=== PATIENT | male | born 1950 | race Hispanic/Latino ===

== ENCOUNTER → 2019-08-28 | Outpatient (CLI) | payer MEDICARE ==
[~2019-08-28] MED LIST: CITA40TA6 PO; FEXO-59 PO; GLIP10TA9 PO; LATA2.5D2 OP; LEVO5TAB13 PO; LOSA50TA64 PO; METF-446 PO; OMEG1CAP6 PO; RANI150T7 PO; SIMV20TA6 PO; TRAZ-187 PO
== END | disposition home or self-care (01) ==
LOC: RAH 08:27
PROVIDERS: ATTEND Physical Medicine & Rehabilitation
DX: M47.26 Other spondylosis with radiculopathy, lumbar region (principal); M48.061 Spinal stenosis, lumbar region without neurogenic claudication; M43.17 Spondylolisthesis, lumbosacral region; M51.26 Other intervertebral disc displacement, lumbar region
CPT/HCPCS: 72148

== ENCOUNTER 2020-11-04 08:41 | Inpatient (IN) | payer MEDICARE, OTHER ==
[~2020-11-04] VITALS: Ht 180.3 cm; Wt 110.9 kg
[~2020-11-04 08:41] MED LIST changes: +CITA-108 PO; -CITA40TA6 PO; +LATA2.5D14 OP; -LATA2.5D2 OP; +SIMV-43 PO; -SIMV20TA6 PO
[2020-11-04 09:56] LABS: APPEARANCE,URINE Clear (CLEAR); BILIRUBIN,URINE Negative (NEGATIVE); COLOR,URINE Dark Yellow (YELLOW); GLUCOSE, URINE (UA) Negative (NEGATIVE); KETONES,URINE Negative (NEGATIVE); LEUKOCYTE ESTERASE ,URINE Negative (NEGATIVE); NITRATE,URINE Negative (NEGATIVE); OCCULT BLOOD,URINE Negative (NEGATIVE); PH,URINE 5.5 (5.0-8.0); PROTEIN,URINE POS 2+ mg/dL (NEGATIVE)
[2020-11-04] MEDS ORDERED: CEFTRIAXONE 2GM VIAL ONE (10:07)
[2020-11-04] MEDS ORDERED: AZITHROMYCIN 500MG+NS 250ML 250 ML IV ONE (10:07)
[2020-11-04] MEDS ORDERED: 0.9%NACL 100ML 100 ML IV ONE (10:08)
[2020-11-04 10:10] LABS: BACTERIA,URINE Few /HPF (None Seen); RBC,URINE 0-1 /HPF (0-1)
[2020-11-04 10:20] LABS: BASOPHILS % (AUTO) 0.2 % (0.0-5.0); HEMATOCRIT 43.1 % (42-54); LYMPHOCYTES % (AUTO) 8.5 % (21.0-51.0); MEAN CORPUSCULAR HEMOGLOBIN 27.9 pg (27.0-33.0); MEAN CORPUSCULAR HGB CONC 33.6 g/dL (32.0-36.0); MONOCYTES % (AUTO) 6.5 % (3.0-13.0); NEUTROPHILS % (AUTO) 84.1 % (40.0-77.0); PLATELET COUNT (AUTO) 161 K/uL (130-400); RED BLOOD CELL COUNT(AUTO) 5.19 MIL/uL (4.50-6.20); WHITE BLOOD COUNT (AUTO) 11.9 K/uL (4.8-10.8)
[2020-11-04 10:34] LABS: INR 0.99 (0.85-1.15); PROTHROMBIN TIME 10.6 SEC (9.6-11.6)
[2020-11-04 10:35] LABS: PARTIAL THROMBOPLASTIN TIME 26.5 SEC (26.3-35.5)
[2020-11-04 10:40] LABS: ALANINE AMINOTRANSFERASE 57 U/L (12-78); ALBUMIN 3.2 g/dL (3.5-5.0); ASPARTATE AMINOTRANSFERASE 48 U/L (10-37); B-TYPE NATRIURETIC PEPTIDE 23 pg/mL (0-100); BILIRUBIN,TOTAL 0.7 mg/dL (0.2-1.0); CARBON DIOXIDE 22 mmol/L (21-32); CHLORIDE 101 mmol/L (101-111); CREATINE KINASE, TOTAL 51 U/L (21-232); CREATININE 1.1 mg/dL (0.5-1.5); GLOMERULAR FILTR. RATE CALC 70 mL/min (>60); GLUCOSE,RANDOM 142 mg/dL (70-105); MYOGLOBIN 100 ng/mL (10-92); POTASSIUM 4.4 mmol/L (3.5-5.1); SODIUM SERUM 137 mmol/L (136-145); TOTAL PROTEIN, SERUM 6.6 g/dL (6.0-8.3); TROPONIN I < 0.04 ng/mL (0.00-0.06); UREA NITROGEN, BLOOD 22 mg/dL (7-18)
[2020-11-04 11:01] LABS: ABG BASE EXCESS -1.1 mmol/L (-2.0-3.0); ABG HCO3 22.4 mmol/L (21.0-28.0); ABG OXYGEN SATURATION 95.2 % (95.0-99.0); ABG PCO2 34 mmHg (35-48)
[2020-11-04] MEDS ORDERED: ACETAMINOPHEN 325 MG TAB PO PRN ×2 (11:30)
[2020-11-04] MEDS ORDERED: DOXYCYCLINE 100MG+NS 250ML IV SCH (11:30)
[2020-11-04] MEDS ORDERED: CEFTRIAXONE 1G VIAL IVP SCH (11:30)
[2020-11-04] MEDS: ERGOCALCIFEROL (VITAMIN D2) 50,000 UNIT CAPSULE PO SCH (11:30)
[2020-11-04] MEDS ORDERED: DiphenhydrAMINE HCL 50 MG/ML VIAL IV PRN (11:30)
[2020-11-04] MEDS ORDERED: NITROGLYCERIN 0.4 MG SL TAB SL PRN (11:30)
[2020-11-04] MEDS ORDERED: GUAIFENESIN-DM 200/20 MG 10 ML PO PRN (11:30)
[2020-11-04] MEDS ORDERED: MAG/ALUM/SIMETH 30 ML UDCUP PO PRN (11:30)
[2020-11-04] MEDS ORDERED: ONDANSETRON 4MG INJ IV PRN (11:30)
[2020-11-04] MEDS ORDERED: DIPHENHYDRAMINE HCL 25 MG CAPSULE PO PRN (11:30)
[2020-11-04] MEDS ORDERED: LACTULOSE 20 GM/30 ML UDCUP PO PRN (11:30)
[2020-11-04] MEDS: DEXAMETHASONE SOD PHOSPHATE 4 MG/ML 1ML VIAL IVP SCH (11:30)
[2020-11-04] MEDS ORDERED: DEXAMETHASONE SOD PHOSPHATE 4 MG/ML 1ML VIAL ONE (12:59)
[2020-11-04] MEDS ORDERED: ERGOCALCIFEROL (VITAMIN D2) 50,000 UNIT CAPSULE ONE (12:59)
[2020-11-04] MEDS ORDERED: DOXYCYCLINE 100MG+NS 250ML 250 ML IV ONE ×2 (13:00→23:20)
[2020-11-04] MEDS ORDERED: GLUCAGON 1MG KIT 1 MG ML IM PRN (13:15)
[2020-11-04] MEDS ORDERED: DEXTROSE 50%-WATER 50 ML DISP.SYRIN IV PRN (13:15)
[2020-11-04 14:36] LABS: HEMOGLOBIN A1C 6.5 % (4.0-6.0)
[2020-11-04] MEDS: INSULIN HUMULIN R 100 UNIT/ML 3ML SQ SCH ×2 (16:30→21:00)
[2020-11-04] MEDS: FAMOTIDINE 20MG VIAL IV SCH (21:00)
[2020-11-04] MEDS ORDERED: ACETYLCYSTEINE 600 MG CAPSULE PO SCH (21:00)
[2020-11-04] MEDS ORDERED: INSULIN HUMULIN R 100 UNIT/ML 3ML ONE (22:03)
[2020-11-04] MEDS ORDERED: CEFTRIAXONE 1G VIAL ONE (23:21)
[2020-11-04] MEDS ORDERED: FAMOTIDINE 20MG VIAL IV ONE (23:21)
[2020-11-04] MEDS ORDERED: ACETYLCYSTEINE 600 MG CAPSULE ONE (23:40)
[2020-11-05 06:21] LABS: BASOPHILS % (AUTO) 0.2 % (0.0-5.0); LYMPHOCYTES % (AUTO) 16.4 % (21.0-51.0); MEAN CORPUSCULAR HEMOGLOBIN 28.1 pg (27.0-33.0); MEAN CORPUSCULAR HGB CONC 33.6 g/dL (32.0-36.0); MEAN CORPUSCULAR VOLUME 83.5 fL (79-99); MONOCYTES % (AUTO) 9.2 % (3.0-13.0); NEUTROPHILS % (AUTO) 73.5 % (40.0-77.0); PLATELET COUNT (AUTO) 145 K/uL (130-400); RED BLOOD CELL COUNT(AUTO) 4.67 MIL/uL (4.50-6.20); RED CELL DISTRIBUTION WIDTH 12.9 % (11.0-15.5); WHITE BLOOD COUNT (AUTO) 8.9 K/uL (4.8-10.8)
[2020-11-05 06:56] LABS: ALANINE AMINOTRANSFERASE 45 U/L (12-78); ALBUMIN 2.6 g/dL (3.5-5.0); ASPARTATE AMINOTRANSFERASE 38 U/L (10-37); BILIRUBIN,TOTAL 0.4 mg/dL (0.2-1.0); CARBON DIOXIDE 24 mmol/L (21-32); CHLORIDE 105 mmol/L (101-111); CREATININE 0.9 mg/dL (0.5-1.5); GLOMERULAR FILTR. RATE CALC 88 mL/min (>60); GLUCOSE,RANDOM 159 mg/dL (70-105); LACTATE DEHYDROGENASE 390 U/L (81-234); POTASSIUM 4.2 mmol/L (3.5-5.1); SODIUM SERUM 139 mmol/L (136-145); TOTAL PROTEIN, SERUM 6.4 g/dL (6.0-8.3); UREA NITROGEN, BLOOD 21 mg/dL (7-18)
[2020-11-05] MEDS: INSULIN HUMULIN R 100 UNIT/ML 3ML SQ SCH ×4 (07:30→21:00)
[2020-11-05] MEDS ORDERED: ASCORBIC ACID 500 MG TAB ONE (08:14)
[2020-11-05] MEDS ORDERED: ZINC SULFATE 220 CAPSULE ONE (08:14)
[2020-11-05] MEDS ORDERED: ENOXAPARIN SODIUM 40 MG/0.4 ML SYRINGE SQ ONE (08:15)
[2020-11-05] MEDS ORDERED: FAMOTIDINE 20MG VIAL IV ONE ×2 (08:15→21:50)
[2020-11-05] MEDS ORDERED: PHARMACY COMMUNICATION MISC SCH (08:45)
[2020-11-05] MEDS: FAMOTIDINE 20MG VIAL IV SCH ×2 (09:00→21:00)
[2020-11-05] MEDS: ASCORBIC ACID 500 MG TAB PO SCH (09:00)
[2020-11-05] MEDS: ZINC SULFATE 220 CAPSULE PO SCH (09:00)
[2020-11-05] MEDS ORDERED: COMPOUND IV REFRIGERATED 1 EACH IVSOLN MISC PRN (09:00)
[2020-11-05] MEDS ORDERED: ENOXAPARIN SODIUM 40 MG/0.4 ML SYRINGE SQ SCH (09:00)
[2020-11-05] MEDS ORDERED: REMDESIVIR (EUA) 520 200 MG in 0.9% NACL 250ML 250 ML IV SCH (09:00)
[2020-11-05] MEDS: ERGOCALCIFEROL (VITAMIN D2) 50,000 UNIT CAPSULE PO SCH (11:30)
[2020-11-05] MEDS: DEXAMETHASONE SOD PHOSPHATE 4 MG/ML 1ML VIAL IVP SCH (11:30)
[2020-11-05] MEDS ORDERED: CEFTRIAXONE 1G VIAL ONE (11:52)
[2020-11-05] MEDS ORDERED: DEXAMETHASONE SOD PHOSPHATE 10MG/ML 1ML VIAL ONE (11:52)
[2020-11-05] MEDS ORDERED: DOXYCYCLINE 100MG+NS 250ML 250 ML IV ONE (11:52)
[2020-11-05] MEDS ORDERED: ERGOCALCIFEROL (VITAMIN D2) 50,000 UNIT CAPSULE ONE (11:52)
[2020-11-05] MEDS ORDERED: INSULIN HUMULIN R 100 UNIT/ML 3ML ONE ×2 (17:07→21:51)
[2020-11-05] MEDS ORDERED: ACETYLCYSTEINE 600 MG CAPSULE ONE (21:50)
[2020-11-06] MEDS ORDERED: DOXYCYCLINE 100MG+NS 250ML 250 ML IV ONE (01:12)
[2020-11-06 04:27] LABS: BASOPHILS % (AUTO) 0.2 % (0.0-5.0); EOSINOPHILS % (AUTO) 0.1 % (0.0-8.0); HEMATOCRIT 40.6 % (42-54); MEAN CORPUSCULAR HEMOGLOBIN 27.8 pg (27.0-33.0); MEAN CORPUSCULAR HGB CONC 33.5 g/dL (32.0-36.0); MONOCYTES % (AUTO) 8.6 % (3.0-13.0); NEUTROPHILS % (AUTO) 69.4 % (40.0-77.0); PLATELET COUNT (AUTO) 173 K/uL (130-400); RED BLOOD CELL COUNT(AUTO) 4.89 MIL/uL (4.50-6.20); RED CELL DISTRIBUTION WIDTH 12.6 % (11.0-15.5); WHITE BLOOD COUNT (AUTO) 8.2 K/uL (4.8-10.8)
[2020-11-06 04:54] LABS: ALBUMIN 2.5 g/dL (3.5-5.0); BILIRUBIN,TOTAL 0.5 mg/dL (0.2-1.0); CREATININE 0.9 mg/dL (0.5-1.5); POTASSIUM 4.3 mmol/L (3.5-5.1); TOTAL PROTEIN, SERUM 6.4 g/dL (6.0-8.3)
[2020-11-06] MEDS: PHARMACY COMMUNICATION MISC SCH (06:00)
[2020-11-06] MEDS: INSULIN HUMULIN R 100 UNIT/ML 3ML SQ SCH ×4 (07:30→21:11)
[2020-11-06] MEDS ORDERED: ASCORBIC ACID 500 MG TAB ONE (07:58)
[2020-11-06] MEDS ORDERED: ENOXAPARIN SODIUM 40 MG/0.4 ML SYRINGE SQ ONE (07:58)
[2020-11-06] MEDS ORDERED: ZINC SULFATE 220 CAPSULE ONE (07:58)
[2020-11-06] MEDS ORDERED: FAMOTIDINE 20MG VIAL IV ONE (07:59)
[2020-11-06] MEDS: ZINC SULFATE 220 CAPSULE PO SCH (09:00)
[2020-11-06] MEDS: FAMOTIDINE 20MG VIAL IV SCH (09:00)
[2020-11-06] MEDS: ASCORBIC ACID 500 MG TAB PO SCH (09:00)
[2020-11-06] MEDS ORDERED: ERGOCALCIFEROL (VITAMIN D2) 50,000 UNIT CAPSULE ONE (10:42)
[2020-11-06] MEDS ORDERED: DEXAMETHASONE SOD PHOSPHATE 10MG/ML 1ML VIAL ONE (10:42)
[2020-11-06] MEDS: DEXAMETHASONE SOD PHOSPHATE 4 MG/ML 1ML VIAL IVP SCH (11:30)
[2020-11-06] MEDS: ERGOCALCIFEROL (VITAMIN D2) 50,000 UNIT CAPSULE PO SCH (11:30)
[2020-11-06] MEDS: MEROPENEM 1 GM VIAL IVP SCH ×2 (14:15→23:05)
[2020-11-06] MEDS ORDERED: 0.9%NACL 100ML 100 ML IV ONE (14:36)
[2020-11-06] MEDS ORDERED: MEROPENEM 1 GM VIAL ONE (14:36)
[2020-11-06] MEDS: REMDESIVIR (EUA) 520 100 MG in 0.9% NACL 250ML 250 ML IV SCH (15:00)
[2020-11-06 17:02] VITALS: BP 157/84
[2020-11-06] MEDS ORDERED: OMEG-148 PO (18:02)
[2020-11-06] MEDS ORDERED: LOSA100T58 PO (18:02)
[2020-11-06] MEDS ORDERED: MELA1TAB28 PO (18:02)
[2020-11-06] MEDS ORDERED: PANT40TA54 PO (18:02)
[2020-11-06] MEDS ORDERED: LATA2.5D14 OP (18:02)
[2020-11-06] MEDS ORDERED: GABA600T10 PO (18:02)
[2020-11-06] MEDS ORDERED: FLUT16H NASAL (18:02)
[2020-11-06] MEDS ORDERED: METF-446 PO (18:02)
[2020-11-06 19:00] VITALS: BP 147/81
[2020-11-06] MEDS: ENOXAPARIN SODIUM 60 MG/0.6 ML SQ SCH (20:56)
[2020-11-06 23:00] VITALS: BP 129/70
[2020-11-07 03:00] VITALS: BP 145/86
[2020-11-07 05:55] LABS: BASOPHILS % (AUTO) 0.3 % (0.0-5.0); EOSINOPHILS % (AUTO) 0.4 % (0.0-8.0); LYMPHOCYTES % (AUTO) 21.6 % (21.0-51.0); MEAN CORPUSCULAR HEMOGLOBIN 28.2 pg (27.0-33.0); MEAN CORPUSCULAR HGB CONC 33.8 g/dL (32.0-36.0); MEAN CORPUSCULAR VOLUME 83.3 fL (79-99); MONOCYTES % (AUTO) 8.3 % (3.0-13.0); NEUTROPHILS % (AUTO) 68.4 % (40.0-77.0); PLATELET COUNT (AUTO) 210 K/uL (130-400); RED BLOOD CELL COUNT(AUTO) 5.04 MIL/uL (4.50-6.20); RED CELL DISTRIBUTION WIDTH 12.6 % (11.0-15.5); WHITE BLOOD COUNT (AUTO) 7.7 K/uL (4.8-10.8)
[2020-11-07] MEDS: PHARMACY COMMUNICATION MISC SCH (06:00)
[2020-11-07 06:20] LABS: ALBUMIN 2.5 g/dL (3.5-5.0); BILIRUBIN,TOTAL 0.8 mg/dL (0.2-1.0); CRP QUANTITATIVE 46.7 mg/L (0.00-9.0); POTASSIUM 4.4 mmol/L (3.5-5.1); TOTAL PROTEIN, SERUM 6.5 g/dL (6.0-8.3)
[2020-11-07] MEDS: MEROPENEM 1 GM VIAL IVP SCH ×2 (06:52→14:14)
[2020-11-07 08:00] VITALS: BP 130/87
[2020-11-07] MEDS: ENOXAPARIN SODIUM 60 MG/0.6 ML SQ SCH ×2 (08:21→21:14)
[2020-11-07] MEDS: ASCORBIC ACID 500 MG TAB PO SCH (08:21)
[2020-11-07] MEDS: PANTOPRAZOLE 40 MG TAB DR PO SCH (08:22)
[2020-11-07] MEDS: ZINC SULFATE 220 CAPSULE PO SCH (08:22)
[2020-11-07 12:00] VITALS: BP 142/80
[2020-11-07] MEDS ORDERED: PHARMACY COMMUNICATION MISC SCH (12:15)
[2020-11-07] MEDS: DEXAMETHASONE SOD PHOSPHATE 4 MG/ML 1ML VIAL IVP SCH (12:15)
[2020-11-07] MEDS: ERGOCALCIFEROL (VITAMIN D2) 50,000 UNIT CAPSULE PO SCH (12:15)
[2020-11-07] MEDS: FLUTICASONE PROPIONATE 50MCG/SPRAY 16 GM BOTTLE EN SCH (12:16)
[2020-11-07] MEDS ORDERED: COMPOUND PO MISCELLANEOUS 1 EACH MISC MISC PRN (12:30)
[2020-11-07] MEDS: MAG/AL/SIMETH 30 ML+LIDO2% VISC+DIPHEN 75MG 30ML PO SCH ×6 (13:01→16:54)
[2020-11-07] MEDS: FISH OIL 1000 MG/CAP PO SCH ×2 (14:14→21:13)
[2020-11-07] MEDS: GABAPENTIN 300 MG CAPSULE PO SCH ×2 (14:14→21:13)
[2020-11-07] MEDS: CLOTRIMAZOLE 10 MG TROCHE MM SCH ×2 (14:14→16:53)
[2020-11-07] MEDS: REMDESIVIR (EUA) 520 100 MG in 0.9% NACL 250ML 250 ML IV SCH (15:01)
[2020-11-07 16:00] VITALS: BP 143/59
[2020-11-07] MEDS: INSULIN HUMULIN R 100 UNIT/ML 3ML SQ SCH ×2 (16:59→21:16)
[2020-11-07 19:00] VITALS: BP 134/65
[2020-11-07] MEDS: **HM** MELATONIN 3MG PO SCH (21:00)
[2020-11-07] MEDS ORDERED: 0.9% NACL 250ML 250 ML IV ONE (21:03)
[2020-11-07] MEDS: LATANOPROST 2.5 ML DROPS OP SCH (21:20)
[2020-11-07 23:00] VITALS: BP 130/67
[2020-11-08] MEDS: MEROPENEM 1 GM VIAL IVP SCH ×4 (01:02→22:43)
[2020-11-08] MEDS: MAG/AL/SIMETH 30 ML+LIDO2% VISC+DIPHEN 75MG 30ML PO SCH ×12 (01:03→17:53)
[2020-11-08] MEDS: CLOTRIMAZOLE 10 MG TROCHE MM SCH ×4 (01:14→22:43)
[2020-11-08 03:00] VITALS: BP 154/74
[2020-11-08] MEDS: INSULIN HUMULIN R 100 UNIT/ML 3ML SQ SCH ×4 (05:48→21:34)
[2020-11-08 05:58] LABS: BASOPHILS % (AUTO) 0.2 % (0.0-5.0); EOSINOPHILS % (AUTO) 0.8 % (0.0-8.0); HEMATOCRIT 38.7 % (42-54); LYMPHOCYTES % (AUTO) 23.6 % (21.0-51.0); MEAN CORPUSCULAR HGB CONC 33.9 g/dL (32.0-36.0); MEAN CORPUSCULAR VOLUME 82.7 fL (79-99); MONOCYTES % (AUTO) 10.6 % (3.0-13.0); NEUTROPHILS % (AUTO) 63.4 % (40.0-77.0); PLATELET COUNT (AUTO) 182 K/uL (130-400); RED BLOOD CELL COUNT(AUTO) 4.68 MIL/uL (4.50-6.20); RED CELL DISTRIBUTION WIDTH 12.4 % (11.0-15.5); WHITE BLOOD COUNT (AUTO) 4.8 K/uL (4.8-10.8)
[2020-11-08] MEDS: PHARMACY COMMUNICATION MISC SCH (06:00)
[2020-11-08 06:35] LABS: ALANINE AMINOTRANSFERASE 37 U/L (12-78); ALBUMIN 2.4 g/dL (3.5-5.0); ASPARTATE AMINOTRANSFERASE 28 U/L (10-37); BILIRUBIN,TOTAL 0.8 mg/dL (0.2-1.0); CARBON DIOXIDE 28 mmol/L (21-32); CHLORIDE 102 mmol/L (101-111); CREATININE 0.9 mg/dL (0.5-1.5); GLOMERULAR FILTR. RATE CALC 88 mL/min (>60); GLUCOSE,RANDOM 136 mg/dL (70-105); POTASSIUM 4.4 mmol/L (3.5-5.1); SODIUM SERUM 139 mmol/L (136-145); TOTAL PROTEIN, SERUM 6.3 g/dL (6.0-8.3); UREA NITROGEN, BLOOD 19 mg/dL (7-18)
[2020-11-08 07:00] VITALS: BP 143/73
[2020-11-08] MEDS: GABAPENTIN 300 MG CAPSULE PO SCH ×3 (10:30→21:32)
[2020-11-08] MEDS: FISH OIL 1000 MG/CAP PO SCH ×3 (10:31→21:31)
[2020-11-08] MEDS: FLUTICASONE PROPIONATE 50MCG/SPRAY 16 GM BOTTLE EN SCH (10:31)
[2020-11-08] MEDS: ENOXAPARIN SODIUM 60 MG/0.6 ML SQ SCH ×2 (10:31→21:33)
[2020-11-08] MEDS: ZINC SULFATE 220 CAPSULE PO SCH (10:31)
[2020-11-08] MEDS: ASCORBIC ACID 500 MG TAB PO SCH (10:31)
[2020-11-08] MEDS: LOSARTAN 100 MG TABLET PO SCH (10:31)
[2020-11-08] MEDS: PANTOPRAZOLE 40 MG TAB DR PO SCH (10:31)
[2020-11-08 11:00] VITALS: BP 128/85
[2020-11-08] MEDS: ERGOCALCIFEROL (VITAMIN D2) 50,000 UNIT CAPSULE PO SCH (11:20)
[2020-11-08] MEDS: DEXAMETHASONE SOD PHOSPHATE 4 MG/ML 1ML VIAL IVP SCH (11:29)
[2020-11-08] MEDS ORDERED: PHARMACY COMMUNICATION MISC SCH (11:45)
[2020-11-08] MEDS: REMDESIVIR (EUA) 520 100 MG in 0.9% NACL 250ML 250 ML IV SCH (14:48)
[2020-11-08 16:00] VITALS: BP 137/86
[2020-11-08 19:27] VITALS: BP 140/70
[2020-11-08] MEDS: **HM** MELATONIN 3MG PO SCH (21:00)
[2020-11-08] MEDS: LATANOPROST 2.5 ML DROPS OP SCH (21:34)
[2020-11-08 23:18] VITALS: BP 151/82
[2020-11-09] MEDS: MAG/AL/SIMETH 30 ML+LIDO2% VISC+DIPHEN 75MG 30ML PO SCH ×12 (01:02→17:27)
[2020-11-09 04:06] VITALS: BP 145/69
[2020-11-09] MEDS: PHARMACY COMMUNICATION MISC SCH (06:00)
[2020-11-09] MEDS: MEROPENEM 1 GM VIAL IVP SCH ×3 (06:12→22:20)
[2020-11-09] MEDS: CLOTRIMAZOLE 10 MG TROCHE MM SCH ×4 (06:12→22:30)
[2020-11-09 06:20] LABS: BASOPHILS % (AUTO) 0.1 % (0.0-5.0); EOSINOPHILS % (AUTO) 0.9 % (0.0-8.0); LYMPHOCYTES % (AUTO) 22.6 % (21.0-51.0); MEAN CORPUSCULAR HGB CONC 33.9 g/dL (32.0-36.0); MEAN CORPUSCULAR VOLUME 82.5 fL (79-99); MONOCYTES % (AUTO) 9.6 % (3.0-13.0); NEUTROPHILS % (AUTO) 65.3 % (40.0-77.0); PLATELET COUNT (AUTO) 233 K/uL (130-400); RED BLOOD CELL COUNT(AUTO) 4.97 MIL/uL (4.50-6.20); RED CELL DISTRIBUTION WIDTH 12.5 % (11.0-15.5); WHITE BLOOD COUNT (AUTO) 6.8 K/uL (4.8-10.8)
[2020-11-09] MEDS: INSULIN HUMULIN R 100 UNIT/ML 3ML SQ SCH ×4 (06:34→20:34)
[2020-11-09 06:39] LABS: ALBUMIN 2.3 g/dL (3.5-5.0); BILIRUBIN,TOTAL 0.7 mg/dL (0.2-1.0); CREATININE 0.9 mg/dL (0.5-1.5); POTASSIUM 4.5 mmol/L (3.5-5.1); TOTAL PROTEIN, SERUM 6.3 g/dL (6.0-8.3)
[2020-11-09 08:30] VITALS: BP 131/83
[2020-11-09] MEDS: FISH OIL 1000 MG/CAP PO SCH ×3 (09:07→20:26)
[2020-11-09] MEDS: GABAPENTIN 300 MG CAPSULE PO SCH ×3 (09:08→20:27)
[2020-11-09] MEDS: ASCORBIC ACID 500 MG TAB PO SCH (09:08)
[2020-11-09] MEDS: LOSARTAN 100 MG TABLET PO SCH (09:08)
[2020-11-09] MEDS: ENOXAPARIN SODIUM 60 MG/0.6 ML SQ SCH ×2 (09:08→22:21)
[2020-11-09] MEDS: PANTOPRAZOLE 40 MG TAB DR PO SCH (09:08)
[2020-11-09] MEDS: ZINC SULFATE 220 CAPSULE PO SCH (09:08)
[2020-11-09] MEDS: FLUTICASONE PROPIONATE 50MCG/SPRAY 16 GM BOTTLE EN SCH (09:17)
[2020-11-09] MEDS: ERGOCALCIFEROL (VITAMIN D2) 50,000 UNIT CAPSULE PO SCH (11:30)
[2020-11-09] MEDS: DEXAMETHASONE SOD PHOSPHATE 4 MG/ML 1ML VIAL IVP SCH (12:14)
[2020-11-09 12:54] VITALS: BP 112/56
[2020-11-09] MEDS ORDERED: 0.9%NACL 50ML 50 ML IV ONE (15:06)
[2020-11-09] MEDS: REMDESIVIR (EUA) 520 100 MG in 0.9% NACL 250ML 250 ML IV SCH (15:07)
[2020-11-09 16:30] VITALS: BP 140/77
[2020-11-09 20:13] VITALS: BP 129/67
[2020-11-09] MEDS: LATANOPROST 2.5 ML DROPS OP SCH (20:26)
[2020-11-09] MEDS: **HM** MELATONIN 3MG PO SCH (20:26)
[2020-11-10 00:12] VITALS: BP 112/76
[2020-11-10] MEDS: MAG/AL/SIMETH 30 ML+LIDO2% VISC+DIPHEN 75MG 30ML PO SCH ×12 (00:30→18:30)
[2020-11-10 04:00] VITALS: BP 126/67
[2020-11-10] MEDS: CLOTRIMAZOLE 10 MG TROCHE MM SCH ×4 (04:47→22:01)
[2020-11-10 05:10] LABS: BASOPHILS % (AUTO) 0.3 % (0.0-5.0); EOSINOPHILS % (AUTO) 0.5 % (0.0-8.0); HEMATOCRIT 41.3 % (42-54); LYMPHOCYTES % (AUTO) 24.8 % (21.0-51.0); MEAN CORPUSCULAR HEMOGLOBIN 28.1 pg (27.0-33.0); MEAN CORPUSCULAR HGB CONC 33.9 g/dL (32.0-36.0); MEAN CORPUSCULAR VOLUME 82.9 fL (79-99); MONOCYTES % (AUTO) 8.3 % (3.0-13.0); NEUTROPHILS % (AUTO) 64.6 % (40.0-77.0); PLATELET COUNT (AUTO) 247 K/uL (130-400); RED BLOOD CELL COUNT(AUTO) 4.98 MIL/uL (4.50-6.20); RED CELL DISTRIBUTION WIDTH 12.5 % (11.0-15.5); WHITE BLOOD COUNT (AUTO) 7.6 K/uL (4.8-10.8)
[2020-11-10 05:45] LABS: ALBUMIN 2.3 g/dL (3.5-5.0); BILIRUBIN,TOTAL 0.5 mg/dL (0.2-1.0); POTASSIUM 4.9 mmol/L (3.5-5.1); TOTAL PROTEIN, SERUM 6.1 g/dL (6.0-8.3)
[2020-11-10] MEDS: MEROPENEM 1 GM VIAL IVP SCH ×3 (06:25→21:45)
[2020-11-10] MEDS: INSULIN HUMULIN R 100 UNIT/ML 3ML SQ SCH ×4 (07:30→21:48)
[2020-11-10] MEDS: GABAPENTIN 300 MG CAPSULE PO SCH ×3 (09:10→21:43)
[2020-11-10] MEDS: ZINC SULFATE 220 CAPSULE PO SCH (09:10)
[2020-11-10] MEDS: ASCORBIC ACID 500 MG TAB PO SCH (09:10)
[2020-11-10] MEDS: FISH OIL 1000 MG/CAP PO SCH ×3 (09:11→21:43)
[2020-11-10] MEDS: PANTOPRAZOLE 40 MG TAB DR PO SCH (09:11)
[2020-11-10] MEDS: LOSARTAN 100 MG TABLET PO SCH (09:11)
[2020-11-10] MEDS: ENOXAPARIN SODIUM 60 MG/0.6 ML SQ SCH ×2 (09:14→21:45)
[2020-11-10 09:19] VITALS: BP 99/36
[2020-11-10] MEDS: FLUTICASONE PROPIONATE 50MCG/SPRAY 16 GM BOTTLE EN SCH (09:32)
[2020-11-10] MEDS: PHARMACY COMMUNICATION MISC SCH (12:30)
[2020-11-10] MEDS: ERGOCALCIFEROL (VITAMIN D2) 50,000 UNIT CAPSULE PO SCH (12:44)
[2020-11-10] MEDS: DEXAMETHASONE SOD PHOSPHATE 4 MG/ML 1ML VIAL IVP SCH (12:44)
[2020-11-10 12:45] VITALS: BP 149/101
[2020-11-10 16:33] VITALS: BP 99/57
[2020-11-10 20:34] VITALS: BP 99/57
[2020-11-10] MEDS: **HM** MELATONIN 3MG PO SCH (22:15)
[2020-11-10] MEDS: LATANOPROST 2.5 ML DROPS OP SCH (22:16)
[2020-11-11] VITALS: BP 111/59
[2020-11-11] MEDS: MAG/AL/SIMETH 30 ML+LIDO2% VISC+DIPHEN 75MG 30ML PO SCH ×15 (00:30→23:40)
[2020-11-11 04:00] VITALS: BP 120/52
[2020-11-11] MEDS: INSULIN HUMULIN R 100 UNIT/ML 3ML SQ SCH ×4 (06:03→20:35)
[2020-11-11] MEDS: MEROPENEM 1 GM VIAL IVP SCH ×3 (06:09→20:38)
[2020-11-11] MEDS: CLOTRIMAZOLE 10 MG TROCHE MM SCH ×4 (06:09→20:38)
[2020-11-11 08:00] VITALS: BP 118/60
[2020-11-11] MEDS: ENOXAPARIN SODIUM 60 MG/0.6 ML SQ SCH ×2 (09:38→20:37)
[2020-11-11] MEDS: FISH OIL 1000 MG/CAP PO SCH ×3 (09:38→20:38)
[2020-11-11] MEDS: ZINC SULFATE 220 CAPSULE PO SCH (09:38)
[2020-11-11] MEDS: ASCORBIC ACID 500 MG TAB PO SCH (09:39)
[2020-11-11] MEDS: LOSARTAN 100 MG TABLET PO SCH (09:39)
[2020-11-11] MEDS: GABAPENTIN 300 MG CAPSULE PO SCH ×3 (09:39→20:38)
[2020-11-11] MEDS: PANTOPRAZOLE 40 MG TAB DR PO SCH (09:39)
[2020-11-11] MEDS: FLUTICASONE PROPIONATE 50MCG/SPRAY 16 GM BOTTLE EN SCH (09:50)
[2020-11-11 12:06] VITALS: BP 110/47
[2020-11-11] MEDS: DEXAMETHASONE SOD PHOSPHATE 4 MG/ML 1ML VIAL IVP SCH (12:12)
[2020-11-11] MEDS: ERGOCALCIFEROL (VITAMIN D2) 50,000 UNIT CAPSULE PO SCH (12:13)
[2020-11-11 16:00] VITALS: BP 101/64
[2020-11-11 19:34] VITALS: BP 100/73
[2020-11-11] MEDS: LATANOPROST 2.5 ML DROPS OP SCH (20:43)
[2020-11-11] MEDS: **HM** MELATONIN 3MG PO SCH (20:43)
[2020-11-12 00:10] VITALS: BP 111/56
[2020-11-12 03:46] VITALS: BP 118/60
[2020-11-12 04:05] LABS: ABG BASE EXCESS 2.6 mmol/L (-2.0-3.0); ABG HCO3 26.6 mmol/L (21.0-28.0); ABG PCO2 39 mmHg (35-48)
[2020-11-12] MEDS: CLOTRIMAZOLE 10 MG TROCHE MM SCH ×4 (05:01→20:49)
[2020-11-12] MEDS: MAG/AL/SIMETH 30 ML+LIDO2% VISC+DIPHEN 75MG 30ML PO SCH ×12 (05:02→20:56)
[2020-11-12] MEDS: MEROPENEM 1 GM VIAL IVP SCH ×3 (05:03→20:48)
[2020-11-12 05:26] LABS: HEMATOCRIT 44.2 % (42-54); MEAN CORPUSCULAR HEMOGLOBIN 28.1 pg (27.0-33.0); MEAN CORPUSCULAR HGB CONC 33.5 g/dL (32.0-36.0); MEAN CORPUSCULAR VOLUME 83.9 fL (79-99); RED BLOOD CELL COUNT(AUTO) 5.27 MIL/uL (4.50-6.20); RED CELL DISTRIBUTION WIDTH 12.7 % (11.0-15.5)
[2020-11-12 05:52] LABS: ALANINE AMINOTRANSFERASE 36 U/L (12-78); ALBUMIN 2.5 g/dL (3.5-5.0); ASPARTATE AMINOTRANSFERASE 19 U/L (10-37); BILIRUBIN,TOTAL 0.8 mg/dL (0.2-1.0); CARBON DIOXIDE 31 mmol/L (21-32); CHLORIDE 98 mmol/L (101-111); CREATININE 1.1 mg/dL (0.5-1.5); GLOMERULAR FILTR. RATE CALC 70 mL/min (>60); GLUCOSE,RANDOM 122 mg/dL (70-105); POTASSIUM 4.6 mmol/L (3.5-5.1); SODIUM SERUM 136 mmol/L (136-145); TOTAL PROTEIN, SERUM 6.4 g/dL (6.0-8.3); UREA NITROGEN, BLOOD 28 mg/dL (7-18)
[2020-11-12] MEDS: INSULIN HUMULIN R 100 UNIT/ML 3ML SQ SCH ×4 (06:27→20:53)
[2020-11-12 08:49] VITALS: BP 110/59
[2020-11-12] MEDS: FLUTICASONE PROPIONATE 50MCG/SPRAY 16 GM BOTTLE EN SCH (09:00)
[2020-11-12] MEDS: ZINC SULFATE 220 CAPSULE PO SCH (09:43)
[2020-11-12] MEDS: ASCORBIC ACID 500 MG TAB PO SCH (09:43)
[2020-11-12] MEDS: PANTOPRAZOLE 40 MG TAB DR PO SCH (09:43)
[2020-11-12] MEDS: FISH OIL 1000 MG/CAP PO SCH ×3 (09:43→20:49)
[2020-11-12] MEDS: LOSARTAN 100 MG TABLET PO SCH (09:43)
[2020-11-12] MEDS: GABAPENTIN 300 MG CAPSULE PO SCH ×3 (09:43→20:49)
[2020-11-12] MEDS: ENOXAPARIN SODIUM 60 MG/0.6 ML SQ SCH ×2 (09:44→20:51)
[2020-11-12] MEDS: ERGOCALCIFEROL (VITAMIN D2) 50,000 UNIT CAPSULE PO SCH (11:54)
[2020-11-12] MEDS: DEXAMETHASONE SOD PHOSPHATE 4 MG/ML 1ML VIAL IVP SCH (11:54)
[2020-11-12 16:00] VITALS: BP 99/68
[2020-11-12 19:30] VITALS: BP 112/49
[2020-11-12] MEDS: LATANOPROST 2.5 ML DROPS OP SCH (20:53)
[2020-11-12] MEDS: **HM** MELATONIN 3MG PO SCH (20:55)
[2020-11-13 00:50] VITALS: BP 107/64
[2020-11-13 03:39] VITALS: BP 112/67
[2020-11-13] MEDS: MEROPENEM 1 GM VIAL IVP SCH ×2 (06:11→13:35)
[2020-11-13] MEDS: CLOTRIMAZOLE 10 MG TROCHE MM SCH ×2 (06:11→10:19)
[2020-11-13] MEDS: MAG/AL/SIMETH 30 ML+LIDO2% VISC+DIPHEN 75MG 30ML PO SCH ×6 (06:12→13:49)
[2020-11-13] MEDS: INSULIN HUMULIN R 100 UNIT/ML 3ML SQ SCH ×2 (06:27→13:48)
[2020-11-13 07:40] VITALS: BP 110/67
[2020-11-13] MEDS ORDERED: DEXA6TAB PO (08:39)
[2020-11-13] MEDS ORDERED: APIX2.5T PO (08:39)
[2020-11-13] MEDS ORDERED: ASCO500T20 PO (08:39)
[2020-11-13] MEDS ORDERED: ZINC220C6 PO (08:39)
[2020-11-13] MEDS: ZINC SULFATE 220 CAPSULE PO SCH (10:18)
[2020-11-13] MEDS: PANTOPRAZOLE 40 MG TAB DR PO SCH (10:18)
[2020-11-13] MEDS: GABAPENTIN 300 MG CAPSULE PO SCH ×2 (10:18→13:36)
[2020-11-13] MEDS: LOSARTAN 100 MG TABLET PO SCH (10:19)
[2020-11-13] MEDS: ASCORBIC ACID 500 MG TAB PO SCH (10:19)
[2020-11-13] MEDS: FISH OIL 1000 MG/CAP PO SCH ×2 (10:19→13:35)
[2020-11-13] MEDS: DEXAMETHASONE SOD PHOSPHATE 4 MG/ML 1ML VIAL IVP SCH (10:19)
[2020-11-13] MEDS: ENOXAPARIN SODIUM 60 MG/0.6 ML SQ SCH (10:20)
[2020-11-13] MEDS: FLUTICASONE PROPIONATE 50MCG/SPRAY 16 GM BOTTLE EN SCH (10:47)
[2020-11-13 11:32] VITALS: BP 125/76
[2020-11-13 16:00] VITALS: BP 108/61
== END 2020-11-13 17:30 | disposition home or self-care (01) | DRG 177 ==
LOC: EDH 08:41 → EDHIP 11:21 → 2AH 11-06 16:08
PROVIDERS: ADMIT Family Medicine; ATTEND Family Medicine
PROC: 5A0935A Assistance with Respiratory Ventilation, Less than 24 Consecutive Hours, High Flow/Velocity Cannula (ICD-10-PCS; 2019-11-13)
PROC: 5A0955A Assistance with Respiratory Ventilation, Greater than 96 Consecutive Hours, High Flow/Velocity Cannula (ICD-10-PCS; 2020-11-04)
PROC: XW033E5 Introduction of Remdesivir Anti-infective into Peripheral Vein, Percutaneous Approach, New Technology Group 5 (ICD-10-PCS; 2020-11-06)
PROC: XW13325 Transfusion of Convalescent Plasma (Nonautologous) into Peripheral Vein, Percutaneous Approach, New Technology Group 5 (ICD-10-PCS; principal; 2020-11-07)
PROC: 5A0935A Assistance with Respiratory Ventilation, Less than 24 Consecutive Hours, High Flow/Velocity Cannula (ICD-10-PCS; 2020-11-10)
PROC: 5A0935A Assistance with Respiratory Ventilation, Less than 24 Consecutive Hours, High Flow/Velocity Cannula (ICD-10-PCS; 2020-11-11)
PROC: 5A09357 Assistance with Respiratory Ventilation, Less than 24 Consecutive Hours, Continuous Positive Airway Pressure (ICD-10-PCS; 2020-11-12)
PROC: 5A0935A Assistance with Respiratory Ventilation, Less than 24 Consecutive Hours, High Flow/Velocity Cannula (ICD-10-PCS; 2020-11-12)
DX: U07.1 COVID-19 (principal); J12.89 Other viral pneumonia; J96.01 Acute respiratory failure with hypoxia; N30.01 Acute cystitis with hematuria; Z16.24 Resistance to multiple antibiotics; Z16.12 Extended spectrum beta lactamase (ESBL) resistance; J44.0 Chronic obstructive pulmonary disease with (acute) lower respiratory infection; E11.9 Type 2 diabetes mellitus without complications; B96.20 Unspecified Escherichia coli [E. coli] as the cause of diseases classified elsewhere; E66.01 Morbid (severe) obesity due to excess calories; K12.30 Oral mucositis (ulcerative), unspecified; R53.81 Other malaise; I10 Essential (primary) hypertension; Z79.01 Long term (current) use of anticoagulants; Z82.0 Family history of epilepsy and other diseases of the nervous system; Z82.3 Family history of stroke; Z82.49 Family history of ischemic heart disease and other diseases of the circulatory system; Z82.5 Family history of asthma and other chronic lower respiratory diseases; Z83.3 Family history of diabetes mellitus; Z98.1 Arthrodesis status; Z68.34 Body mass index [BMI] 34.0-34.9, adult
CPT/HCPCS: 36415; 36600; 71045; 71250; 80053; 81001; 82435; 82550; 82728; 82803; 82947; 82948; 83036; 83605; 83615; 83874; 83880; 84132; 84145; 84295; 84484; 85018; 85025; 85027; 85378; 85610; 85730; 86140; 86850; 86900; 86901; 86927; 87040; 87077; 87088; 87186; 87426; 87804; 93005; 94760; 99291; G0378; J0456; J0696; J1100; J1650; J1815; J2185; J3490; J7050

== ENCOUNTER → 2021-04-29 | Outpatient (CLI) | payer MEDICARE ==
[~2021-04-29] MED LIST changes: +APIX2.5T PO; +ASCO500T20 PO; -CITA-108 PO; +DEXA6TAB PO; -FEXO-59 PO; +FLUT16H NASAL; +GABA600T10 PO; -GLIP10TA9 PO; -LEVO5TAB13 PO; +LOSA100T58 PO; -LOSA50TA64 PO; +MELA1TAB28 PO; +OMEG-148 PO; -OMEG1CAP6 PO; +PANT40TA54 PO; -RANI150T7 PO; -SIMV-43 PO; -TRAZ-187 PO; +ZINC220C6 PO
== END | disposition home or self-care (01) ==
LOC: RAH 13:14
PROVIDERS: ATTEND Internal Medicine Critical Care Medicine
DX: R91.8 Other nonspecific abnormal finding of lung field (principal); N28.1 Cyst of kidney, acquired; K80.20 Calculus of gallbladder without cholecystitis without obstruction; I25.10 Atherosclerotic heart disease of native coronary artery without angina pectoris
CPT/HCPCS: 71250

== ENCOUNTER → 2021-05-04 | Outpatient (CLI) | payer MEDICARE | END | disposition home or self-care (01) | LOC: RAH 11:58 | PROVIDERS: ATTEND Urology | DX: N28.1 Cyst of kidney, acquired (principal) | CPT/HCPCS: 76770 ==

== ENCOUNTER → 2023-04-24 | Outpatient (CLI) | payer OTHER ==
[~2023-04-24] MED LIST changes: +AEC81 PO; -APIX2.5T PO; -ASCO500T20 PO; +ATOR40TA69 PO; +BENZ-226 PO; +CEPH500B PO; +CHOL100040 PO; +CYAN100099 PO; -DEXA6TAB PO; +DIPH25CA53 PO; +FAMO20TA8 PO; +FERS325 PO; -FLUT16H NASAL; +FURO20TA6 PO; -GABA600T10 PO; +GLIP5TAB11 PO; -LATA2.5D14 OP; -LOSA100T58 PO; +LOSA100T59 PO; +LOSA25TA2 PO; -MELA1TAB28 PO; +MELA5TAB14 PO; +METO100T14 PO; +MULT-1258 PO; +POTA-364 PO; -ZINC220C6 PO
== END | disposition home or self-care (01) ==
LOC: RAH 08:56
PROVIDERS: ATTEND Urology
DX: N28.1 Cyst of kidney, acquired (principal)
CPT/HCPCS: 76770

== ENCOUNTER → 2023-12-11 | Outpatient (CLI) | payer MEDICARE, BC ==
[~2023-12-11] MED LIST changes: -GLIP5TAB11 PO; +GLIP5TAB15 PO; +LOSA-417 PO; -LOSA25TA2 PO
== END | disposition home or self-care (01) ==
LOC: RAH 09:42
PROVIDERS: ATTEND Urology
DX: N28.1 Cyst of kidney, acquired (principal)
CPT/HCPCS: 76770

== ENCOUNTER → 2023-12-22 | Outpatient (CLI) | payer OTHER | END | disposition home or self-care (01) | LOC: RAH 12:57 | PROVIDERS: ATTEND Internal Medicine Critical Care Medicine | DX: J31.0 Chronic rhinitis (principal) | CPT/HCPCS: 70486 ==

== ENCOUNTER → 2024-03-11 | Outpatient (CLI) | payer OTHER ==
[~2024-03-11] MED LIST changes: -MELA5TAB14 PO; +MELA5TAB66 PO
[2024-03-11] MEDS: REGADENOSON 0.4 MG/5 ML PF SYG IVP ONE (11:49)
== END | disposition home or self-care (01) ==
LOC: RAH 08:50
PROVIDERS: ATTEND Physician Assistant
DX: I49.3 Ventricular premature depolarization (principal); R53.83 Other fatigue; R07.89 Other chest pain; Z79.899 Other long term (current) drug therapy
CPT/HCPCS: 78452; 96374; 93017; J2785; A9500 ×2

== ENCOUNTER → 2024-12-10 | Outpatient (CLI) | payer OTHER ==
[~2024-12-10] MED LIST changes: +ALBU90AE IH; +CETI1TAB PO; +IOHEXOL 350 MG/ML 100ML INFUS..BTL IV ONE; +PRED20TA3 PO
--- NOTE | 2024-12-10 11:38 | HMCIMG ---
CT CARDIAC ANGIO W/CONT. CCTA REASON: SOB COMPARISON: None TECHNIQUE: Images are obtained through the heart in the axial plane before and during bolus IV contrast infusion, 100 cc Omnipaque 350. 2-D and 3-D multiplanar reconstruction images were then performed. The injection had to be repeated once due to motion artifact on the first sequence, total contrast volume was 200 cc. FINDINGS: This dictation is for the noncardiac findings only. Cardiac and coronary artery findings are reported separately. Visualized portions of the lungs are clear. There is normal-appearing pulmonary interstitium. There is no hilar or mediastinal lymphadenopathy. Chest wall structures appear unremarkable. IMPRESSION: 1. Unremarkable noncardiac portions of CT cardiac angiography.
== END | disposition home or self-care (01) ==
LOC: RAH 08:30
PROVIDERS: ATTEND Nurse Practitioner
DX: R06.02 Shortness of breath (principal)
CPT/HCPCS: 75574; Q9967

== ENCOUNTER → 2024-12-19 | Outpatient (CLI) | payer OTHER ==
[~2024-12-19] MED LIST changes: -IOHEXOL 350 MG/ML 100ML INFUS..BTL IV ONE
--- NOTE | 2024-12-19 09:40 | HMCIMG ---
Exam Type: US RENAL SONOGRAM Clinical Information: CYST OF KIDNEY, UNSPECIFIED Comparison: Ultrasound December 11, 2023 and April 24, 2023 Findings: Examination shows normal renal size and echogenicity bilaterally. Preserved cortical thickness and corticomedullary junction region is seen. No hydronephrosis or calculi are seen. No renal masses are seen. There is no evidence of perinephric fluid on either side. No evidence of significant ureteral dilatation is seen. The right kidney measures 10.6 x 5.5 cm. The left kidney measures 10.8 x 4.3 cm. Stable renal lower pole exophytic simple cyst 9.7 cm. Prevoid images of the urinary bladder demonstrate a volume of 190 cc. Postvoid volume shows retention, 80 cc. IMPRESSION: Normal renal anatomy bilaterally. Simple cyst right kidney lower pole exophytic. Stable. Urinary bladder retention.
== END | disposition home or self-care (01) ==
LOC: RAH 08:09
PROVIDERS: ATTEND Urology
DX: N28.1 Cyst of kidney, acquired (principal)
CPT/HCPCS: 76770

== ENCOUNTER 2025-03-27 07:41 | Day surgery (SDC) | payer OTHER ==
[~2025-03-27] VITALS: Ht 177.8 cm; Wt 128.8 kg
[2025-03-27] VITALS (10 sets, daily range): BP systolic 104–148; BP diastolic 62–79; PULSE 61–72; RESP 15–18; TEMP 97.4–98.2
[~2025-03-27 07:41] MED LIST changes: +0.9%NACL 1000ML 1,000 ML IV ONE
[2025-03-27] MEDS ORDERED: CYCL1DRO14 OP (08:53)
[2025-03-27] MEDS ORDERED: CLOT15CR23 TP (08:53)
[2025-03-27] MEDS ORDERED: MELO-106 PO (08:53)
[2025-03-27] MEDS ORDERED: LID5O TP (08:53)
[2025-03-27] MEDS ORDERED: BETA15CR12 TP (08:53)
[2025-03-27] MEDS ORDERED: METO-409 PO (08:53)
[2025-03-27] MEDS ORDERED: HYPR10GE5 OP (08:53)
[2025-03-27] MEDS ORDERED: FLUT15.845 NS (08:53)
[2025-03-27] MEDS ORDERED: DORZ10DR9 OD (08:53)
[2025-03-27] MEDS ORDERED: PSYLLIUM PO (08:53)
[2025-03-27] MEDS ORDERED: CLOB30CR4 TP (08:53)
[2025-03-27] MEDS ORDERED: DOCU100C33 PO (08:53)
[2025-03-27] MEDS ORDERED: LOSA100T59 PO (08:53)
[2025-03-27] MEDS ORDERED: CLIN30GE14 TP (08:53)
[2025-03-27] MEDS ORDERED: FENO145T26 PO (08:53)
[2025-03-27] MEDS ORDERED: PHENYLEPHRINE RC (08:53)
[2025-03-27] MEDS ORDERED: proPOFol 10 MG/ML 20ML VIAL IV ONE (11:05)
== END 2025-03-27 12:35 | disposition home or self-care (01) ==
LOC: ENDO 07:41 → DAH 07:41 → ENDO 12:35
PROVIDERS: ATTEND Internal Medicine Gastroenterology
DX: Z12.11 Encounter for screening for malignant neoplasm of colon (principal); D12.4 Benign neoplasm of descending colon; D12.2 Benign neoplasm of ascending colon; D12.3 Benign neoplasm of transverse colon; K57.30 Diverticulosis of large intestine without perforation or abscess without bleeding; K64.0 First degree hemorrhoids; K29.70 Gastritis, unspecified, without bleeding; E78.5 Hyperlipidemia, unspecified; I10 Essential (primary) hypertension; I25.10 Atherosclerotic heart disease of native coronary artery without angina pectoris; E11.9 Type 2 diabetes mellitus without complications; J45.909 Unspecified asthma, uncomplicated; Z86.16 Personal history of COVID-19; Z95.1 Presence of aortocoronary bypass graft; Z86.0100 Personal history of colon polyps, unspecified; Z79.899 Other long term (current) drug therapy; Z79.84 Long term (current) use of oral hypoglycemic drugs; Z79.82 Long term (current) use of aspirin
CPT/HCPCS: 45385; 82948; J7030; J2704; A4620; A4215 ×2; A4223; A4222; A4221; A4663; A4606; J3490

== ENCOUNTER 2025-04-15 07:27 | Day surgery (SDC) | payer OTHER ==
[~2025-04-15] VITALS: Ht 177.8 cm; Wt 104.3 kg
[2025-04-15] VITALS (10 sets, daily range): BP systolic 111–147; BP diastolic 63–88; PULSE 60–67; RESP 15–19; TEMP 97–97.8
[~2025-04-15 07:27] MED LIST changes: -0.9%NACL 1000ML 1,000 ML IV ONE; -BENZ-226 PO; +BETA15CR12 TP; -CEPH500B PO; -CETI1TAB PO; +CLIN30GE14 TP; +CLOB30CR4 TP; +CLOT15CR23 TP; +CYAN-37 PO; -CYAN100099 PO; +CYCL1DRO14 OP; -DIPH25CA53 PO; +DOCU100C33 PO; +DORZ10DR9 OD; -FAMO20TA8 PO; +FENO145T26 PO; -FERS325 PO; +FLUT15.845 NS; +HYPR10GE5 OP; +LID5O TP; -LOSA-417 PO; +MELO-106 PO; +METO-409 PO; -METO100T14 PO; -MULT-1258 PO; +PHENYLEPHRINE RC; -POTA-364 PO; -PRED20TA3 PO; +PSYLLIUM PO
[2025-04-15] MEDS: 0.9%NACL 1000ML 1,000 ML IV ONE (08:22)
[2025-04-15] MEDS ORDERED: TAMS-55 PO (08:34)
[2025-04-15] MEDS ORDERED: GLIP10TA16 PO (08:34)
[2025-04-15] MEDS ORDERED: MELA5TAB50 PO (08:34)
[2025-04-15] MEDS ORDERED: FURO20TA4 PO (08:34)
[2025-04-15] MEDS ORDERED: CETI10TA87 PO (08:34)
[2025-04-15] MEDS ORDERED: MULT-1203 PO (08:34)
[2025-04-15] MEDS ORDERED: ATOR40TA69 PO (08:34)
[2025-04-15] MEDS ORDERED: TESTOSTERONE PO (08:34)
[2025-04-15] MEDS ORDERED: proPOFol 10 MG/ML 20ML VIAL IV ONE (11:00)
== END 2025-04-15 12:10 | disposition home or self-care (01) ==
LOC: ENDO 07:27 → DAH 07:27 → ENDO 12:10
PROVIDERS: ATTEND Internal Medicine Gastroenterology
DX: R12 Heartburn (principal); R14.2 Eructation; K31.89 Other diseases of stomach and duodenum; K26.9 Duodenal ulcer, unspecified as acute or chronic, without hemorrhage or perforation; K57.30 Diverticulosis of large intestine without perforation or abscess without bleeding; K64.0 First degree hemorrhoids; I10 Essential (primary) hypertension; J45.909 Unspecified asthma, uncomplicated; E78.5 Hyperlipidemia, unspecified; E11.9 Type 2 diabetes mellitus without complications; I25.10 Atherosclerotic heart disease of native coronary artery without angina pectoris; Z79.899 Other long term (current) drug therapy; Z86.0100 Personal history of colon polyps, unspecified; Z79.82 Long term (current) use of aspirin; Z95.1 Presence of aortocoronary bypass graft
CPT/HCPCS: 82948; 43239; J7030 ×2; J2704; A4620; A4215; A4223; A7002; A4222; A4221; A4663; A4606; J3490